=== PATIENT | female | born 1995 | race Caucasian/White ===

== ENCOUNTER → 2017-12-20 | Outpatient (CLI) | payer OTHER | END | disposition home or self-care (01) | LOC: US 10:56 | DX: O26.91 Pregnancy related conditions, unspecified, first trimester (principal); Z3A.12 12 weeks gestation of pregnancy ==

== ENCOUNTER 2018-01-14 12:05 | Emergency (ER) | payer OTHER ==
[~2018-01-14] VITALS: Ht 170.1 cm; Wt 58.1 kg
[2018-01-14 12:38] LABS: BILIRUBIN NEGATIVE (NEGATIVE); BLOOD NEGATIVE (NEGATIVE); CLARITY CLOUDY (CLEAR); COLOR YELLOW (YELLOW); GLUCOSE NEGATIVE (NEGATIVE); KETONE NEGATIVE (NEGATIVE); LEUKO ESTERASE NEGATIVE (NEGATIVE); NITRITE NEGATIVE (NEGATIVE); SPECIFIC GRAVITY 1.015 (1.005-1.030); UROBILINOGEN 0.2 E.U./dl (0.2-1.0)
[2018-01-14 13:01] LABS: BACTERIA 2+
== END 2018-01-14 13:55 | disposition home or self-care (01) ==
LOC: ED 12:05
PROVIDERS: Registered Nurse
DX: O26.892 Other specified pregnancy related conditions, second trimester (principal); R10.12 Left upper quadrant pain; Z3A.16 16 weeks gestation of pregnancy

== ENCOUNTER 2019-04-09 12:39 | Emergency (ER) | payer OTHER ==
[~2019-04-09] VITALS: Ht 170.1 cm; Wt 61.2 kg
[2019-04-09 13:34] LABS: BILIRUBIN NEGATIVE (NEGATIVE); BLOOD 2+ (NEGATIVE); CLARITY CLEAR (CLEAR); COLOR YELLOW (YELLOW); GLUCOSE NEGATIVE (NEGATIVE); KETONE 1+ (NEGATIVE); LEUKO ESTERASE NEGATIVE (NEGATIVE); NITRITE NEGATIVE (NEGATIVE); UROBILINOGEN 0.2 E.U./dl (0.2-1.0)
[2019-04-09 13:46] LABS: BACTERIA 1+
== END 2019-04-09 14:13 | disposition home or self-care (01) ==
LOC: ED 12:39
PROVIDERS: Nurse Practitioner Family
DX: O46.92 Antepartum hemorrhage, unspecified, second trimester (principal); Z3A.14 14 weeks gestation of pregnancy